=== PATIENT | female | born 1955 | race Caucasian/White ===

== ENCOUNTER → 2016-11-26 | Outpatient (CLI) | payer OTHER ==
[2015-03-16 15:55] VITALS: BP 150/81
[~2016-11-26] MED LIST: ALPR0.254 PO; ASPI-630 PO; BUPIVACAINE MPF 0.5% 10 ML VIAL for KCIC. IJ ONE; CHOL20002 PO; CYAN100072 PO; ESOM40CA PO; IOHEXOL 300 MG/ML 50 ML VIAL. INT ART ONE; LIDOCAINE 1% Multi-Dose 20 ML VIAL. ID ONE; LINA145C PO; PHEN16.287 PO; TRIA1TAB3 PO; VENL150C PO; methylPREDNISolone ACETATE 40 MG/ML VIAL. INT ART ONE
--- NOTE | 2016-11-26 15:13 | KCIC ---
[Left] hip injection History: [Chronic left] hip pain Findings: Patient was informed of the risks to include pain, infection, bleeding, nerve or blood vessel injury, and allergic reaction. All questions were answered. The patient signed a written consent form for a [left] hip injection. Patient was placed in a supine position. External skin site overlying the [left] hip was prepped and draped in the usual sterile fashion. Betadine was utilized for cleansing solution. 1% lidocaine was utilized for local anesthesia to the depth of the [left] femoral neck. 22-gauge spinal needle was advanced to the margin of the [left] femoral neck. Solution containing 2 mL Depo-Medrol, 4 cc lidocaine, 4 cc Omnipaque 300, and 4 cc Marcaine were injected. Injection demonstrated intra-articular position of the needle tip. Needle was removed. There were no immediate complications. Bandage was applied at site of puncture. Fluoroscopy time: [1 minute 16 seconds] , [2] fluoroscopic images. Impression: 1. Technically successful left hip injection without immediate complication as stated. Electronically signed by: Giuliano Horton MD (11/26/2016 3:10 PM) [id number]
== END | disposition home or self-care (01) ==
LOC: KCIC 13:28
PROVIDERS: ATTEND Orthopaedic Surgery Sports Medicine
DX: G89.29 Other chronic pain (principal); M25.552 Pain in left hip
CPT/HCPCS: 20610; 77002; J1030; Q9967

== ENCOUNTER → 2016-12-31 | Outpatient (CLI) | payer OTHER ==
[2015-03-16 15:55] VITALS: BP 150/81
[~2016-12-31] MED LIST changes: -BUPIVACAINE MPF 0.5% 10 ML VIAL for KCIC. IJ ONE; -IOHEXOL 300 MG/ML 50 ML VIAL. INT ART ONE; -LIDOCAINE 1% Multi-Dose 20 ML VIAL. ID ONE; -methylPREDNISolone ACETATE 40 MG/ML VIAL. INT ART ONE
--- NOTE | 2016-12-31 09:07 | RAD ---
ABDOMEN LTD Clinical Indication: THROMBOCYTOSIS/EVALUATE SPLEEN Comparison: None. Technique: Real-time grayscale ultrasound of the left abdomen was obtained. FINDINGS/IMPRESSION: The spleen is normal in size measuring 8.6 cm.
== END | disposition home or self-care (01) ==
LOC: US 07:44
PROVIDERS: ATTEND Internal Medicine Hematology & Oncology
DX: D75.89 Other specified diseases of blood and blood-forming organs (principal); D50.9 Iron deficiency anemia, unspecified; D47.3 Essential (hemorrhagic) thrombocythemia
CPT/HCPCS: 76705

== ENCOUNTER → 2017-01-15 | Outpatient (CLI) | payer OTHER ==
[2015-03-16 15:55] VITALS: BP 150/81
--- NOTE | 2017-01-15 15:41 | KCIC ---
Examination: MRI left knee without contrast HISTORY: History of left knee pain anterior, history of fall COMPARISON: None available Technique: Multiplanar, multisequence MR imaging of the left knee was performed without contrast FINDINGS: The anterior cruciate ligament evaluation is somewhat limited due to motion artifact. Grossly the anterior cruciate ligament appears intact. Posterior cruciate ligament is intact. There is blunting of the junction of the posterior horn of the medial meniscus laterally just proximal to the posterior root best visualized on series 8 image 9 likely could be a tear. There is mild attenuation of the body of the medial meniscus. There is multiloculated cystic structure extending from the posterior horn of the medial meniscus extending medially superficial to the medial collateral ligament could be a ganglion cyst or meniscal cyst or bursal fluid. There is mild fraying of the body of the lateral meniscus. The medial collateral ligament is intact. The lateral collateral ligamentous complex including the fibular collateral ligament, biceps femoris tendon, popliteus tendon appear intact. The medial retinaculum, lateral retinaculum appear intact. There is deep fissuring of cartilage identified in the anterior patellofemoral compartment and the medial compartment. Mild superficial fissuring of cartilage identified in the lateral compartment. There is moderate joint space loss identified in the medial, lateral, patellar femoral compartments. The extensor mechanism is intact. IMPRESSION: 1. Probable tear posterior horn of the medial meniscus. 2. Multiloculated cystic structure extending from the posterior horn of the medial meniscus extending medially superficial to the medial collateral ligament could be a ganglion cyst or meniscal cyst or bursal fluid. 3. Fraying of the body of the lateral meniscus. 4. Moderate tricompartmental degenerative changes. 5. Grade II chondromalacia medial, anterior patellofemoral compartments. Electronically signed by: Serafin Onofre MD (01/15/2017 3:37 PM) [id number]
== END | disposition home or self-care (01) ==
LOC: KCIC MRI 12:54
PROVIDERS: ATTEND Family Medicine
DX: M22.42 Chondromalacia patellae, left knee (principal); Z91.81 History of falling
CPT/HCPCS: 73721

== ENCOUNTER 2017-04-21 06:59 | Outpatient (CLI) | payer OTHER ==
[2017-04-21 07:43] LABS: ADD MAN DIFF? NO
[2017-04-21] MEDS ORDERED: LIDOCAINE WITH 8.4% SOD BICARB 3 ML DISP.SYRIN. IJ ×3 (07:51→08:27)
[2017-04-21] MEDS ORDERED: MIDAZOLAM HCL/PF 5 MG/5 ML VIAL. (07:56)
[2017-04-21] MEDS ORDERED: fentaNYL PF VIAL 250 MCG/5 ML VIAL (07:57)
[2017-04-21] MEDS ORDERED: NALOXONE 0.4 MG/ML VIAL. (07:57)
[2017-04-21] MEDS ORDERED: FLUMAZENIL 0.5 MG/5 ML VIAL. IV (07:57)
[2017-04-21 08:01] LABS: BASO % 1 % (0-3); EOS # 0.2 x10^3/uL (0.0-0.7); EOS % 3 % (0-3); HEMATOCRIT 42.5 % (36.0-47.0); HEMOGLOBIN 14.5 g/dL (12.0-15.5); LYMPH # 1.1 x10^3/uL (1.0-4.8); LYMPH % 16 % (24-48); MEAN CORPUSCULAR HEMOGLOBIN 33 pg (25-35); MEAN CORPUSCULAR HGB CONC 34 g/dL (31-37); MEAN CORPUSCULAR VOLUME 97 fL (79-100); MONO # 0.5 x10^3/uL (0.0-1.1); MONO % 7 % (0-9); NEUT # 5.1 x10^3uL (1.8-7.7); NEUT % 74 % (31-73); PLATELET COUNT 668 x10^3/uL (140-400); RED CELL DISTRIBUTION WIDTH 13.4 % (11.5-14.5); WHITE BLOOD COUNT 6.9 x10^3/uL (4.0-11.0)
[2017-04-21 08:09] LABS: PROTHROMBIN TIME PATIENT 12.1 SEC (11.7-14.0)
[2017-04-21] MEDS: LIDOCAINE WITH 8.4% SOD BICARB 3 ML DISP.SYRIN. IJ (08:45)
[2017-04-21] MEDS: fentaNYL PF VIAL 250 MCG/5 ML VIAL IV (08:46)
[2017-04-21] MEDS: MIDAZOLAM HCL/PF 5 MG/5 ML VIAL. IV (08:46)
== END 2017-04-21 10:00 | disposition home or self-care (01) ==
LOC: INTRAD 06:59
DX: D47.3 Essential (hemorrhagic) thrombocythemia (principal); K21.9 Gastro-esophageal reflux disease without esophagitis; F41.9 Anxiety disorder, unspecified; F32.9 Major depressive disorder, single episode, unspecified; Z88.2 Allergy status to sulfonamides; Z90.49 Acquired absence of other specified parts of digestive tract; Z87.39 Personal history of other diseases of the musculoskeletal system and connective tissue
CPT/HCPCS: 36415; 38222; 77012; 85025; 85610; 88184; 88185; 88237; 99152; J2250; J3010